=== PATIENT | male | born 1970 | race Caucasian/White ===

== ENCOUNTER → 2018-06-15 | Outpatient (CLI) | payer OTHER ==
--- NOTE | 2018-06-15 09:34 | PCVCIMAG ---
APPROVED REPORT Study performed: 06/15/2018 07:54:31 EXAM: Comprehensive 2D, Doppler, and color-flow Echocardiogram Patient Location: Echo lab Status: routine BSA: 2.52 HR: 82 bpmBP: 146/96 mmHg Rhythm: NSR Other Information Study Quality: AdequateTechnically Difficult Technically limited study due to body habitus. Risk Factors: Cardiac Risk Factors: Smoking, HTN Indications Dyspnea edema, obesity 2D Dimensions IVSd: 10.93 (7-11mm) LVDd: 47.24 mm PWd: 10.66 (7-11mm) LVDs: 34.84 (25-40mm) Left Atrium: 40.96 (27-40mm) Aortic Root: 32.67 mm LV Single Plane 4CH: 49.63 % LV Single Plane 2CH: 57.71 % Biplane EF: 54.3 % Volumes Left Atrial Volume (Systole) Single Plane 4CH: 44.64 mLSingle Plane 2CH: 59.78 mL LA ESV Index: 21.00 mL/m2 Aortic Valve AoV Peak Karthik.: 1.22 m/s AO Peak Gr.: 5.93 mmHgLVOT Max P.71 mmHg LVOT Max V: 1.09 m/s Mitral Valve E/A Ratio: 1.3 MV Decel. Time: 223.14 ms MV E Max Karthik.: 0.58 m/s MV A Karthik.: 0.44 m/s IVRT: 96.89 ms Pulmonary Valve PV Peak Karthik.: 0.91 m/sPV Peak Gr.: 3.33 mmHg Pulmonary Vein P Vein S: 0.33 m/sP Vein A: 0.30 m/s P Vein D: 0.45 m/sP Vein A Dur.: 107.3 msec P Vein S/D Ratio: 0.73 Left Ventricle The left ventricle is normal size. There is normal LV segmental wall motion. There is normal left ventricular wall thickness. Left ventricular systolic function is normal. The left ventricular ejection fraction is within the normal range. LVEF is 55%. Grade II - pseudonormal filling dynamics. Right Ventricle The right ventricle is normal size. The right ventricular systolic function is normal. Atria The left atrium size is normal. The right atrium size is normal. Aortic Valve Aortic valve is probably trileaflet, difficult to visualize. No aortic regurgitation is present. There is no aortic valvular stenosis. Mitral Valve The mitral valve is normal in structure. There is no mitral valve regurgitation noted. No evidence of mitral valve stenosis. Tricuspid Valve The tricuspid valve is normal in structure. There is no tricuspid valve regurgitation noted. Pulmonic Valve The pulmonary valve is normal in structure. There is no pulmonic valvular regurgitation. Great Vessels The aortic root is normal in size. IVC is normal in size and collapses >50% with inspiration. Pericardium There is no pericardial effusion. There is no pleural effusion. <Conclusion> The left ventricle is normal size. LVEF is 55%. Grade II - pseudonormal filling dynamics. The right ventricle is normal size. The left atrium size is normal. Aortic valve is probably trileaflet, difficult to visualize. There is no aortic valvular stenosis. There is no mitral valve regurgitation noted. There is no tricuspid valve regurgitation noted. The aortic root is normal in size. There is no pericardial effusion.
== END | disposition home or self-care (01) ==
LOC: PCVCIMAG 07:59
PROVIDERS: ATTEND Family Medicine
DX: R06.00 Dyspnea, unspecified (principal); R60.0 Localized edema; E66.01 Morbid (severe) obesity due to excess calories; I11.0 Hypertensive heart disease with heart failure; I50.9 Heart failure, unspecified; F17.200 Nicotine dependence, unspecified, uncomplicated; Z68.41 Body mass index [BMI] 40.0-44.9, adult
CPT/HCPCS: 93306